=== PATIENT | female | born 1965 | race Caucasian/White ===

== ENCOUNTER → 2019-09-28 12:25 | Outpatient (CLI) | payer OTHER, SELFPAY ==
--- NOTE | 2019-09-28 | DI.MG.S_ITS ---
BILATERAL DIGITAL SCREENING MAMMOGRAM 3D/2D WITH CAD: 09/28/2019 CLINICAL: Routine screening. Comparison is made to exams dated: 03/21/2016 mammogram, 07/27/2009 mammogram, 01/17/2008 mammogram, 10/10/2016 mammogram, and 03/29/2016 mammogram - [facility]. There are scattered fibroglandular elements in both breasts. Current study was also evaluated with a Computer Aided Detection (CAD) system. There is an oval focal asymmetry of the superior lateral right breast at middle to posterior depth which is stable in appearance on multiple prior exams dating back to 07/27/09, consistent with benignity and likely representing dense fibroglanduar tissue or a hamartoma. There are linear fine calcifications in the medial left breast at posterior depth. No other significant masses, calcifications, or other findings are seen in either breast. IMPRESSION: INCOMPLETE: NEEDS ADDITIONAL IMAGING EVALUATION The linear fine calcifications in the medial left breast at posterior depth are indeterminate. Magnification views as well as additional views with possible ultrasound are recommended. This exam was interpreted at Station ID: [id number]. NOTE: For mammograms, a report in lay terms will be sent to the patient. Approximately 15% of breast malignancies will not be visualized mammographically. In the management of a palpable breast mass, a negative mammogram must not discourage biopsy of a clinically suspicious lesion. Electronically Signed By: Harsh Adame M.D. ecl/:09/28/2019 17:50:10 letter sent: Additional Imaging Needed ACR BI-RADS Category 0: Incomplete 3340F
--- NOTE | 2019-09-28 | DI.RAD.S_ITS ---
PROCEDURE: XR HIP W PEL IF DONE LT MIN 4V INDICATIONS: BILATERAL HIP PAIN TECHNIQUE: AP pelvis with lateral view(s) of the bilateral hip(s). COMPARISON: None. FINDINGS: Bones: No fractures or dislocations. Pelvic ring appears intact. No suspicious bony lesions. Soft tissues: The visualized bowel gas pattern is normal. No suspicious soft tissue calcifications. IMPRESSION: There is a minimal degree of joint degenerative osteoarthritic thinning, and no trauma found. Dictated by: Navin Blake M.D. on 09/28/2019 at 13:44 Approved by: Navin Blake M.D. on 09/28/2019 at 13:45
--- NOTE | 2019-09-28 | DI.RAD.S_ITS ---
PROCEDURE: XR LUMBAR SPINE 2-3V INDICATIONS: BACK PAIN TECHNIQUE: 3 views of the lumbar spine were acquired. COMPARISON: None. FINDINGS: Bones: 5 [id number] vertebrae are present. There is normal bony alignment. No vertebral body compression fractures. No suspicious bony lesions. Soft tissues: Overlying bowel gas pattern is normal. No suspicious soft tissue calcifications. IMPRESSION: Normal for age, source of current back pain symptoms is not seen. Dictated by: Navin Blake M.D. on 09/28/2019 at 13:44 Approved by: Navin Blake M.D. on 09/28/2019 at 13:44
== END ==
PROVIDERS: Visit Provider Nurse Practitioner Family
DX: Z12.31 Encounter for screening mammogram for malignant neoplasm of breast (principal); M25.551 Pain in right hip; M25.552 Pain in left hip; M54.5 Low back pain
CPT/HCPCS: 72100; 73522; 77063; 77067

== ENCOUNTER → 2019-10-14 12:57 | Outpatient (CLI) | payer OTHER, SELFPAY ==
--- NOTE | 2019-10-14 | DI.MG.S_ITS ---
UNILATERAL LEFT DIGITAL DIAGNOSTIC MAMMOGRAM 3D/2D WITH ADDITIONAL VIEWS: 10/14/2019 CLINICAL: Additional evaluation requested from prior study. Comparison is made to exams dated: 09/28/2019 mammogram, 10/10/2016 mammogram, and 03/29/2016 mammogram - [facility]. There are scattered fibroglandular elements in left breast. There are new linear segmental fine pleomorphic calcifications in the left breast at 9 o'clock posterior depth. No other significant masses or calcifications are seen in the breast. IMPRESSION: HIGHLY SUGGESTIVE OF MALIGNANCY The new linear segmental fine pleomorphic calcifications in the left breast are highly suggestive of malignancy. A stereotactic biopsy is recommended. The findings were discussed with the patient at the conclusion of the study by Dr. Blake. This exam was interpreted at Station ID: [id number]. NOTE: For mammograms, a report in lay terms will be sent to the patient. Approximately 15% of breast malignancies will not be visualized mammographically. In the management of a palpable breast mass, a negative mammogram must not discourage biopsy of a clinically suspicious lesion. Electronically Signed By: Raul meza/:10/14/2019 14:13:12 letter sent: Biopsy Required ACR BI-RADS Category 5: Highly suggestive of malignancy 3345F
== END ==
PROVIDERS: Referring Provider Nurse Practitioner Family; Visit Provider Nurse Practitioner Family
DX: R92.8 Other abnormal and inconclusive findings on diagnostic imaging of breast (principal); R92.1 Mammographic calcification found on diagnostic imaging of breast
CPT/HCPCS: 77065; G0279

== ENCOUNTER → 2020-10-25 10:59 | Outpatient (CLI) | payer OTHER, SELFPAY ==
--- NOTE | 2020-10-25 11:01 | DI.MRI.S_ITS ---
BREAST MRI OF BOTH BREASTS- POST LUMPECTOMY: 10/25/2020 CLINICAL: Follow up DCIS raditation. Comparison is made to exams dated: 05/19/2020 breast MRI - [facility], 03/07/2020 localization - [facility], 10/22/2019 stereotactic biopsy - [facility], and 09/28/2019 mammogram - [facility]. Interpretation of this MRI was correlated with available mammograms, ultrasounds, previous MRI scans, and clinical information. Gadolinium contrast was injected. Axial T1, T2, and pre and post contrast T1 images were obtained. Bilateral background breast enhancement is mild. FINDINGS: Image quality: Excellent. There is mild background parenchymal enhancement. Right breast: The right breast demonstrates no abnormal focus, mass, or abnormal enhancement. No axillary or internal mammary chain adenopathy. Left breast: There is a thin wall, peripherally enhancing lumpectomy cavity with a significantly smaller seroma now measuring 0.8 x 0.6 x 0.6 cm compared to 3.2 x 1.6 x 5.2 cm. Areas of signal loss or likely surgical clips. Postoperative focal thickening/scar extends to the underlying pectoralis muscle and the skin medially, however there is no significant enhancement on subtraction images and no areas of focal nodular enhancement to suggest recurrence of neoplasm. No axillary or internal mammary chain adenopathy. IMPRESSION: KNOWN BIOPSY PROVEN MALIGNANCY 1. Postoperative changes of lumpectomy in the left breast 9-10 o'clock position. The seroma is significantly smaller compared to the prior study. 2. No suspicious focal nodular enhancement in the left breast or chest wall to suggest residual disease or recurrence of disease status post lumpectomy. 3. No axillary or internal mammary gland adenopathy. This exam was interpreted at Station ID: [id number]. Electronically Signed By: Kendrick Lofton acr/:10/25/2020 12:56:08 copy to: HARSHAD GALLEGOS copy to: Yumi Schaeffer ACR BI-RADS Category 6: Known biopsy proven malignancy 3346F
== END ==
PROVIDERS: PCP Internal Medicine; Referring Provider Surgery; Visit Provider Surgery
DX: D05.12 Intraductal carcinoma in situ of left breast (principal)
CPT/HCPCS: 77049

== ENCOUNTER → 2021-05-12 13:55 | Outpatient (CLI) | payer OTHER, SELFPAY ==
--- NOTE | 2021-05-12 13:57 | DI.MG.S_ITS ---
BILATERAL DIGITAL SCREENING MAMMOGRAM 3D/2D WITH CAD: 05/12/2021 CLINICAL: Routine screening. Personal history of left breast cancer. Family history of breast cancer. Comparison is made to exams dated: 10/25/2020 breast MRI, 09/28/2019 mammogram, and 10/14/2019 mammogram - [facility]. There are scattered fibroglandular elements in both breasts. Current study was also evaluated with a Computer Aided Detection (CAD) system. There are benign post operative findings in the left breast. No significant masses, calcifications, or other findings are seen in either breast. There has been no significant interval change. IMPRESSION: BENIGN There is no mammographic evidence of malignancy. A 1 year screening mammogram is recommended. This exam was interpreted at Station ID: [id number]. NOTE: For mammograms, a report in lay terms will be sent to the patient. Approximately 15% of breast malignancies will not be visualized mammographically. In the management of a palpable breast mass, a negative mammogram must not discourage biopsy of a clinically suspicious lesion. Electronically Signed By: Kianna medellin/arias:05/12/2021 15:20:23 copy to: HARSHAD GALLEGOS copy to: Yumi Schaeffer letter sent: Normal Exam ACR BI-RADS Category 2: Benign Finding(s) 3342F
== END ==
PROVIDERS: PCP Internal Medicine; Referring Provider Internal Medicine; Visit Provider Internal Medicine
DX: Z12.31 Encounter for screening mammogram for malignant neoplasm of breast (principal); Z85.3 Personal history of malignant neoplasm of breast; Z80.3 Family history of malignant neoplasm of breast
CPT/HCPCS: 77063; 77067

== ENCOUNTER 2021-08-20 17:31 | Emergency (ER) | payer OTHER, SELFPAY ==
[2021-08-20 17:51] VITALS: BP 163/77; PULSE 83; RESP 16; TEMP 37; O2SAT 99; BMI 24.3
--- NOTE | 2021-08-20 18:00 | DI.RAD.S_ITS ---
PROCEDURE: XR FINGER LT MIN 2V INDICATIONS: injury TECHNIQUE: AP hand, 2 views of the left 2nd finger(s) acquired. COMPARISON: None. FINDINGS: Bones: No fractures or dislocations. No suspicious bony lesions. Soft tissues: No suspicious soft tissue calcifications. Soft tissue irregularity consistent with laceration. IMPRESSION: No fracture or radiopaque foreign body. Dictated by: Bk Harrison M.D. on 08/20/2021 at 18:22 Approved by: Bk Harrison M.D. on 08/20/2021 at 18:23
--- NOTE | 2021-08-20 18:37 | ED.UPPEXIN ---
HPI - Extremity Injury (Upper) <THIEN Woody - Last Filed: 08/20/21 20:32> General Chief Complaint: Extremity Injury, Upper Stated Complaint: Cut left hand and finger chopping veggies Time Seen by Provider: 08/20/21 18:35 Source: patient Mode of arrival: Ambulatory History of Present Illness HPI narrative: 56-year-old female presents to the emergency department today for a the left index finger laceration through the nail while cutting vegetables for dinner tonight. Patient reports she was watching a movie while slicing vegetables and she accidentally cut through her fingernail without realizing it. Bleeding was controlled with a pressure dressing, finger tip with not amputated, patient left index finger nail is involved and fully lacerated on the medial 1/3rd aspect of the nail. Patient's last tetanus was within the last year. Patient denies any anticoagulant, she does have full range of motion to her finger passive and active. She denies any difficulty with flexion or extension. Related Data Home Medications Medication Instructions Recorded Confirmed ibuprofen 200 mg tablet (Advil) 400 mg PO PRN #0 04/18/12 cetirizine 10 mg tablet 10 mg PO QDAYP PRN #0 12/05/16 Allergies Allergy/AdvReac Type Severity Reaction Status Date / Time ciprofloxacin [From CIPRO] Allergy Unknown rash Unverified 10/28/20 19:03 latex [LATEX] Allergy Unknown blisters Unverified 10/28/20 19:03 Sulfa (Sulfonamide Allergy Unknown RASH Unverified 10/28/20 19:03 Antibiotics) [SULFA (SULFONAMIDE ANTIBIOTICS)] Review of Systems <THIEN Woody - Last Filed: 08/20/21 20:32> Review of Systems Narrative: General: denies fever, chills Head/Neck: denies headache, neck pain Eyes: denies visual changes, eye pain Cardio: denies chest pain, palpitations Respiratory: denies shortness of breath, cough MSK: denies joint pain, muscle weakness, Skin: denies rash, itching, endorses left index finger laceration any on the medial tends Neuro: denies numbness, tingling Patient History <THIEN Woody - Last Filed: 08/20/21 20:32> Medical History Finger laceration Surgical History History of third molar tooth extraction Status post laparoscopy (04/18/12) Social History Smoking Status: Unknown if ever smoked Smoking Status: Unknown if ever smoked Substance Use Type: does not use Exam <THIEN Woody - Last Filed: 08/20/21 20:32> Narrative Exam Narrative: Independently reviewed vitals signs and nursing notes. General: Awake, alert, nontoxic, no cardiorespiratory distress Head/Neck: Atraumatic, neck full range of motion Eyes: EOMI, conjunctiva normal Nose: nares patent, no rhinorrhea Mouth/Throat: moist mucus membranes Cardio: Regular rate, cap refill less than 2 seconds, warm extremities Respiratory: respirations unlabored without wheezing, stridor, or rales. No retractions. MSK: Moves all extremities, neurovascularly intact, left index finger with laceration through the nail bed approximately 1/3 of the nail at the distal medial aspect. Bleeding is controlled, wound was thoroughly irrigated with saline and chlorhexidine solution. Skin: Normal capillary refill, no rash Neuro: Normal speech and cognition, normal gait Initial Vital Signs Initial Vital Signs: Vital Signs Temperature 98.6 F 08/20/21 17:51 Pulse Rate 83 08/20/21 17:51 Respiratory Rate 16 08/20/21 17:51 Blood Pressure 163/77 H 08/20/21 17:51 Pulse Oximetry 99 08/20/21 17:51 Procedures <THIEN Woody - Last Filed: 08/20/21 20:32> Laceration Repair Laceration 1: Size (cm): 1 Description: linear and clean Depth: simple, single layer Local Anesthetic: lidocaine 1% and with bicarb Amount of anesthesia used (mL): 2 Pre-repair: wound explored, irrigated extensively and deep structures intact Skin layer closed with: nylon Size (cm): 5-0 Number of sutures: 3 Technique: simple, interrupted Subcutaneous layer closed with: chromic gut Size: 5-0 Number of sutures: 3 Technique: simple, interrupted Course <THIEN Woody - Last Filed: 08/20/21 20:32> Orders Ordered: Discontinued Medications Hydrocodone Bitart/Acetaminophen (Hydrocodone/Acet 5/325 Tablet) 1 tab PO NOW ONE Stop: 08/20/21 20:10 Last Admin: 08/20/21 20:31 Dose: 1 tab Documented by: MYCHAL Lidocaine/Sodium Bicarbonate (Lido 1%/Sod Bicarb 8.4% (10ml) 10 Ml Syringe) 10 ml INJ NOW ONE Stop: 08/20/21 18:37 Last Admin: 08/20/21 20:32 Dose: 10 ml Documented by: MYCHAL Vital Signs Vital signs: Vital Signs - 8 hr 08/20/21 17:51 Temperature 98.6 F Pulse Rate 83 Respiratory Rate 16 Blood Pressure 163/77 H Pulse Oximetry 99 [facility] - Extremity Injury (Upper) <THIEN Woody - Last Filed: 08/20/21 20:32> Imaging Data Extremity x-ray #1: Radiologist's Impression: PROCEDURE:? XR FINGER LT MIN 2V ? INDICATIONS:? injury ? TECHNIQUE:? AP hand, 2 views of the left 2nd finger(s) acquired.? ? COMPARISON:? None. ? FINDINGS:? ? Bones:? No fractures or dislocations.? No suspicious bony lesions.? ? Soft tissues:? No suspicious soft tissue calcifications.? Soft tissue irregularity consistent with laceration. ? IMPRESSION:? No fracture or radiopaque foreign body. ? ? Dictated by: Bk Harrison M.D. on 08/20/2021 at 18:22 ? ? Approved by: Bk Harrison M.D. on 08/20/2021 at 18:23 ? [facility] Narrative Medical decision making narrative: 56-year-old female presents to the emergency department for laceration to her left index finger through the nail not involving the bone. Bleeding was controlled with pressure lack repair was completed without difficulty. Chromic gut sutures were used to suture up the nail, nylon sutures were used lateral to the nail suture the skin. X-ray did not show foreign body, or tuft fracture. Patient's finger was dressed with a tube gauze dressing, bleeding was controlled with the Surgicel, CMS intact distally. Patient tolerated procedure well, he will return to her PCP in 10-14 days for suture removal. Patient is appropriate and amenable to discharge home. Vital signs are stable on repeat examination is unremarkable. Patient has been informed of results. Patient has been given strict return to ER precautions for any new or worsening symptoms. Patient understands to follow up closely with outpatient providers as instructed. Patient understands plan and agrees to discharge home. All questions and concerns answered at this time. Discharge Plan Departure Patient Disposition: Home Clinical Impression: Finger laceration Qualifiers: Encounter type: initial encounter Finger: index finger Damage to nail status: with damage Foreign body presence: without foreign body Laterality: left Qualified Code(s): S61.311A - Laceration without foreign body of left index finger with damage to nail, initial encounter Instructions: DI for Laceration Repair -- Complex, DI for Laceration Repair -- Finger Activity Restrictions/Additional Instructions: *You have been diagnosed with a finger laceration of your left finger. Because it went through the nail, and it is fairly deep, I would like you to take the antibiotic if you are okay with that and the tube rather wait to see if he has any signs of infection. I called in pain medication as well to the [facility] here in [facility]. Please have your black sutures removed in 10-14 days. Try to keep this covered at all times mostly for protection. There was fracture under x-ray today which is good news. Please call [facility] and schedule an appointment for follow-up and suture removal. You are always welcome back here if you have any worsening of your symptoms, bleeding, or any other concerning problems. Was a pleasure to meet you, I wish you well. *What to do: *Please continue to take your regular medications as directed. [x ] New medication prescriptions sent to your pharmacy: [Amy Yarbrough ] [ ] New medication written as a paper prescription [ ] No new medications given *Please follow up with your primary care provider in 2-3 days, call for an appointment. Let them know you were seen in the Emergency Department and that we ask that you be seen in follow up. We will electronically transmit a record of today's note if your PCP is in our system *If you do not have a primary care provider please contact the [facility] Resource line at [phone]. They will ask some questions about your medical history and help get you set up with a doctor in the community. *Return to Emergency Department if you should have any new, worsening or concerning symptoms, such as [fever greater than 101F, chills, worsening pain, persistent vomiting or other bothersome symptoms] Prescriptions: No Action ibuprofen [Advil] 200 MG tablet 400 mg PO PRN Qty: 0 0RF cetirizine 10 MG tablet 10 mg PO QDAYP PRNQty: 0 0RF Referrals: Vika Rodriguez ARNP [Primary Care Provider] - 10-14 days
--- NOTE | 2021-08-20 20:19 | PC.NURSE ---
post suture dsg placed, surgiseal, then nonadherent dsg covered by roll gauze.
[2021-08-20] MEDS: HYDROCODONE/ACET 5/325 TABLET 1 TAB PO (20:31)
[2021-08-20] MEDS: LIDO 1%/SOD BICARB 8.4% (10ML) 10 ML SYRINGE INJ (20:32)
== END 2021-08-20 20:36 | disposition home or self-care (01) ==
PROVIDERS: Emergency Provider Nurse Practitioner Critical Care Medicine; PCP Internal Medicine
DX: S61.311A Laceration without foreign body of left index finger with damage to nail, initial encounter (principal); W26.9XXA Contact with unspecified sharp object(s), initial encounter
CPT/HCPCS: 12001; 73140; 99283; 99284

== ENCOUNTER → 2021-11-13 11:58 | Outpatient (CLI) | payer OTHER, SELFPAY ==
--- NOTE | 2021-11-13 12:03 | DI.MRI.S_ITS ---
BREAST MRI OF BOTH BREASTS- POST LUMPECTOMY: 11/13/2021 CLINICAL: Intraductal carcinoma in situ of left breast. TECHNIQUE: The patient was placed prone in a dedicated breast imaging coil. Precontrast axial STIR and 3D FLASH without fat saturation sequences were obtained. Both before and after bolus injection of contrast, sequential 1-minute axial 3D FLASH with fat saturation sequences for 3 time points, with subtraction images and maximum intensity projections (MIP's) generated. Delayed sagittal FLASH images with fat saturation were also obtained. Computer-aided detection, including computer algorithm analysis of MRI image data for lesion detection and characterization, pharmacokinetic analysis, with further physician review for interpretation, was performed. COMPARISON: [facility], MG, MM SCREENING MAMMO BI, 05/12/2021, 14:27. [facility], MR, MR BREAST BILATERAL WITH CAD, 05/19/2020, 13:09. [facility], MR, MR BREAST BI WO/W CON, 10/25/2020, 11:35. Image quality: Excellent. There is mild background parenchymal enhancement. There is scattered fibroglandular tissue in the bilateral breasts. Right breast: No mass, non-mass enhancement, architectural distortion, skin abnormalities, or nipple abnormalities identified. No axillary or internal mammary chain adenopathy. Left breast: Again noted, postsurgical changes from partial mastectomy of the 9-10 o'clock region of the posterior left breast. There is surgical changes extending to the underlying pectoralis muscle. Overall appearance appears less conspicuous without abnormal enhancement. Findings are compatible with progressive healing and fibrosis from previous surgery. Susceptibility artifact within the surgical site is again noted. No abnormal enhancement noted within the surgical bed. Overall, the area of scarring and previous seroma continues to decrease in size and prominence now measuring approximately 2.6 cm in AP dimension, 1.7 cm in craniocaudal dimension, and approximately 0.8 cm in transverse dimension. The previously described seroma measuring 0.8 x 0.6 x 0.6 cm is no longer visualized definitively for measuring. No definite focal fluid collection is identified on today's study. No new mass identified. No areas of suspicious non mass enhancement. No new skin or nipple abnormalities. Expected postsurgical changes/scarring of the skin adjacent to the surgical site. No axillary or internal mammary chain adenopathy. Miscellaneous: Redemonstration of stable thin walled nonenhancing hepatic cysts. Remainder of the visualized upper abdomen and chest structures are unremarkable. IMPRESSION: BENIGN 1. Postoperative changes of the medial left breast compatible with prior partial mastectomy with continued decrease in size of previously described seroma/hematoma. No definite residual fluid collection identified. Continued decrease in size and prominence of surgical changes/scarring. No suspicious enhancement/non-mass enhancement identified. No new mass lesions. 2. Right breast without MRI evidence for malignancy. Recommend continued clinical surveillance and annual screening mammography (due approximately May 2022). Consider continued annual surveillance breast MRI. COMMENT: The imaging literature indicates that a negative contrast breast MRI examination has a high sensitivity and a moderate specificity for detecting and excluding invasive carcinomas to a detection threshold of 3-5 mm; nonetheless, appropriate clinical and mammographic follow-up are recommended. MRI is not sensitive for detecting DCIS (ductal carcinoma in situ) and may not detect large invasive neoplasms that show only minimal enhancement such as mucinous carcinoma. If there are suspicious calcifications or clinically worrisome palpable masses, then biopsy should still be considered. Invasive neoplasms can be hidden by co-existent and benign enhancement caused by mastitis, hormone therapy effects, radiation therapy, , and recent biopsy or surgery. False positive examinations can occur in a number of circumstances, including breasts that have recently been subject to invasive procedures and those that contain atypical ductal hyperplasia, hormonally stimulated glandular tissue, fat necrosis, or radial scars. Return to annual mammogram screening schedule is recommended. Future imaging is recommended as follows: 05/13/2022 screening mammogram. This exam was interpreted at Station ID: [id number]. Electronically Signed By: Alexis Lacy M.D. aty/:11/14/2021 14:24:28 copy to: HARSHAD GALLEGOS copy to: Yumi Schaeffer ACR BI-RADS Category 2: Benign Finding(s) 3342F
== END ==
PROVIDERS: PCP Internal Medicine; Referring Provider Surgery; Visit Provider Surgery
DX: D05.12 Intraductal carcinoma in situ of left breast
CPT/HCPCS: 77049; A9579

== ENCOUNTER → 2022-02-07 09:46 | Outpatient (CLI) | payer OTHER, SELFPAY ==
[2022-02-07 12:34] LABS: COVID19 -Nasal RAPID Negative (Negative)
== END ==
PROVIDERS: PCP Internal Medicine; Visit Provider Family Medicine Sleep Medicine
DX: Z20.822 Contact with and (suspected) exposure to COVID-19 (principal)
CPT/HCPCS: 87635; C9803

== ENCOUNTER 2022-02-09 13:40 | Day surgery (SDC) | payer OTHER, SELFPAY ==
--- NOTE | 2022-02-09 12:32 | PM.PREOP ---
Pre-operative Note COVID-19 COVID-19 status: Negative Result date/Date tested (Pos, Neg/Pending): 02/07/22 Interval Note History & Physical reviewed/Exam performed by Physician: Yes Changes to H&P: No ASA Class (for procedural sedation): II
--- NOTE | 2022-02-09 12:32 | PM.OP.COLON ---
Operative Date/Time/Diagnoses Date of procedure: 02/09/22 Procedure Notes SCOAP/Timeout: 3:47 p.m. Procedure in detail: ENDOSCOPIST: Ruby Issa MD Sedation RN: Angelic Villarreal RN Sedation start time: 3:48 p.m. Sedation end time: 4:05 p.m. PROCEDURE: Colonoscopy INDICATIONS: 1. Screening for colon cancer MEDICATION: Levsin 0.125 mg sublingual, incremental doses of Versed and fentanyl until appropriate level sedation achieved. ASA CLASS: 2 CECAL WITHDRAWAL TIME: 12 minutes COMPLICATIONS: None. EXTENT OF PROCEDURE: Cecum. QUALITY OF PREP: Good with portions of liquid stool. PROCEDURE: Prior to insertion of the colonoscope, a digital rectal examination was accomplished with circumferential palpation of the distal rectal mucosa without significant findings being noted. The high-definition pediatric colonoscope was passed into the rectum in the usual fashion and advanced over to the cecum without difficulty. The ileocecal valve, appendiceal stoma, and medial wall all could be inspected and no abnormalities were seen. ASCENDING COLON: As the colonoscope was withdrawn, care was taken to expose and inspect the haustral folds and no abnormalities were seen. HEPATIC FLEXURE: Normal, no polyps, diverticula or other abnormalities. TRANSVERSE COLON: Normal, no polyps, diverticula or other abnormalities. DESCENDING COLON: Normal, no polyps, diverticula or other abnormalities. SIGMOID COLON: Moderate diverticulosis, otherwise, normal, no polyps, or other abnormalities. RECTUM: Normal. J maneuver was produced. There was no significant perianal disease. The J maneuver was broken. The remainder of the rectum was inspected and there was no external hemorrhoid disease. The scope was withdrawn. IMPRESSION: 1. Normal colonoscopy 2. Sigmoid diverticulosis PLAN: 1. Repeat colonoscopy in 10 years. The possibility of a missed lesion including a malignancy has been discussed with the patient previously. Potential alarm symptoms have been discussed and should be reported immediately.
[2022-02-09 13:58] VITALS: BP 157/99; PULSE 106; RESP 16; TEMP 37.3; O2SAT 100
[2022-02-09 14:04] VITALS: BMI 26.0
[2022-02-09] MEDS: HYOSCYAMINE 0.125 MG TABLET PO (14:16)
[2022-02-09] MEDS: LACTATED RINGERS 1,000 ML 200 ML IV (14:16)
[2022-02-09] MEDS: MIDAZOLAM 5 MG/5 ML VIAL 6 MG IV (15:48)
[2022-02-09] MEDS: fentaNYL 250 MCG/5 ML INJ 150 MCG IV (15:48)
[2022-02-09 16:19] VITALS: BP 120/89; PULSE 94; RESP 14; TEMP 36.4; O2SAT 98
[2022-02-09 16:24] VITALS: BP 125/86; PULSE 78; PULSE 93; RESP 15; RESP 18; O2SAT 98; O2SAT 99
[2022-02-09 16:29] VITALS: BP 121/78; PULSE 77; RESP 16; O2SAT 98
[2022-02-09 16:34] VITALS: BP 121/78; PULSE 81; RESP 16; O2SAT 99
[2022-02-09 16:41] VITALS: BP 129/94; PULSE 92; RESP 16; O2SAT 100
== END 2022-02-09 17:02 | disposition home or self-care (01) ==
PROVIDERS: PCP Family Medicine; Referring Provider Student in an Organized Health Care Education/Training Program; Visit Provider Student in an Organized Health Care Education/Training Program
PROC: 0DJD8ZZ Inspection of Lower Intestinal Tract, Via Natural or Artificial Opening Endoscopic (ICD-10-PCS; CPT 45378; principal; 2022-02-09 15:15)
DX: Z12.11 Encounter for screening for malignant neoplasm of colon (principal); Z86.010 Personal history of colon polyps; K57.30 Diverticulosis of large intestine without perforation or abscess without bleeding
CPT/HCPCS: 45378; J2250; J3010

== ENCOUNTER → 2022-06-16 12:45 | Outpatient (CLI) | payer OTHER, SELFPAY ==
--- NOTE | 2022-06-16 12:47 | DI.MG.S_ITS ---
BILATERAL DIGITAL SCREENING MAMMOGRAM 3D/2D WITH CAD: 06/16/2022 CLINICAL: Routine screening. Personal history of left breast cancer. Family history of breast cancer. Comparison is made to exams dated: 11/13/2021 breast MRI, 05/12/2021 mammogram, 10/25/2020 breast MRI - [facility], and 05/19/2020 breast MRI - [facility]. There are scattered areas of fibroglandular density in both breasts (category b / 25%-50% glandular tissue). Current study was also evaluated with a Computer Aided Detection (CAD) system. There are benign post operative findings in the left breast. There is a mole marker on the right breast. No significant masses, calcifications, or other findings are seen in either breast. There has been no significant interval change. IMPRESSION: BENIGN There is no mammographic evidence of malignancy. A 1 year screening mammogram is recommended. This exam was interpreted at Station ID: [id number]. NOTE: For mammograms, a report in lay terms will be sent to the patient. Approximately 15% of breast malignancies will not be visualized mammographically. In the management of a palpable breast mass, a negative mammogram must not discourage biopsy of a clinically suspicious lesion. Electronically Signed By: Kendrick Lofton M.D. acr/penrad:06/18/2022 08:47:33 copy to: HARSHAD GALLEGOS copy to: Yumi Schaeffer letter sent: Normal Exam ACR BI-RADS Category 2: Benign Finding(s) [id number]
== END ==
PROVIDERS: PCP Family Medicine; Referring Provider Family Medicine; Visit Provider Family Medicine
DX: Z12.31 Encounter for screening mammogram for malignant neoplasm of breast (principal); Z85.3 Personal history of malignant neoplasm of breast; Z80.3 Family history of malignant neoplasm of breast
CPT/HCPCS: 77063; 77067

== ENCOUNTER → 2022-12-13 11:44 | Outpatient (CLI) | payer OTHER, SELFPAY ==
--- NOTE | 2022-12-13 | DI.MRI.S_ITS ---
BREAST MRI OF BOTH BREASTS: 12/13/2022 CLINICAL: Left breast cancer. PROCEDURE: MR BREAST BI WO/W CON INDICATIONS: INTRADUCTAL CARCINOMA LEFT BREAST TECHNIQUE: The patient was placed prone in a dedicated breast imaging coil. Precontrast axial STIR and 3D FLASH without fat saturation sequences were obtained. Both before and after bolus injection of contrast, sequential 1-minute axial 3D FLASH with fat saturation sequences for 3 time points, with subtraction images and maximum intensity projections (MIP's) generated. Delayed sagittal FLASH images with fat saturation were also obtained. Computer-aided detection, including computer algorithm analysis of MRI image data for lesion detection and characterization, pharmacokinetic analysis, with further physician review for interpretation, was performed. COMPARISON: Merged With [facility], , MR BREAST BI WO/W CON, 10/25/2020, 11:35. [facility], MM SCREENING MAMMO BI, 05/12/2021, 14:27. [facility], MM SCREENING MAMMO BI, 06/16/2022, 13:11. [facility], MR BREAST BI WO/W CON, 11/13/2021, 12:04. FINDINGS: Image quality: Excellent. There is mild background parenchymal enhancement. Right breast: No abnormal focus, mass, or abnormal enhancement. Normal-appearing lymph nodes are seen in the right axilla. Left breast: Postoperative changes of lumpectomy in the medial breast are seen. Previously described seroma has resolved. No abnormal enhancement. Linear scar extends from the operative site to the underlying pectoralis muscle and skin medially with no enhancement on subtraction images and no areas of focal nodular enhancement to suggest recurrence of neoplasm. No axillary or internal mammary chain adenopathy. IMPRESSION: BENIGN 1. Postoperative changes of lumpectomy in the left breast 9 o'clock to 10 o'clock position. 2. No evidence of residual or recurrence disease status post lumpectomy. 3. No axillary or internal mammary gland adenopathy. COMMENT: The imaging literature indicates that a negative contrast breast MRI examination has a high sensitivity and a moderate specificity for detecting and excluding invasive carcinomas to a detection threshold of 3-5 mm; nonetheless, appropriate clinical and mammographic follow-up are recommended. MRI is not sensitive for detecting DCIS (ductal carcinoma in situ) and may not detect large invasive neoplasms that show only minimal enhancement such as mucinous carcinoma. If there are suspicious calcifications or clinically worrisome palpable masses, then biopsy should still be considered. Invasive neoplasms can be hidden by co-existent and benign enhancement caused by mastitis, hormone therapy effects, radiation therapy, , and recent biopsy or surgery. False positive examinations can occur in a number of circumstances, including breasts that have recently been subject to invasive procedures and those that contain atypical ductal hyperplasia, hormonally stimulated glandular tissue, fat necrosis, or radial scars. This exam was interpreted at Station ID: [id number]. Electronically Signed By: Kendrick Lofton M.D. acr/:12/14/2022 10:26:12 copy to: Carlota Lainez letter sent: Normal Exam ACR BI-RADS Category 2: Benign Finding(s) [id number]
== END ==
PROVIDERS: PCP Family Medicine; Referring Provider Internal Medicine; Visit Provider Internal Medicine
DX: Z12.39 Encounter for other screening for malignant neoplasm of breast (principal); C50.912 Malignant neoplasm of unspecified site of left female breast
CPT/HCPCS: 77049; A9579

== ENCOUNTER → 2023-04-16 15:11 | Outpatient (CLI) | payer OTHER, SELFPAY ==
--- NOTE | 2023-04-16 15:12 | DI.RAD.S_ITS ---
PROCEDURE: XR HAND RT MIN 3V INDICATIONS: injury of right hand, INITIAL ENCOUNTER TECHNIQUE: 3 views of the hand(s) acquired. COMPARISON: None. FINDINGS: Bones: No fractures or dislocations. Carpal bones are normally aligned. No suspicious bony lesions. Soft tissues: No suspicious soft tissue calcifications. IMPRESSION: No acute right hand fracture or dislocation. Dictated by: Mateus Hawkins M.D. on 04/16/2023 at 21:50 Approved by: Mateus Hawkins M.D. on 04/16/2023 at 21:51
== END ==
PROVIDERS: PCP Family Medicine; Referring Provider Registered Nurse; Visit Provider Registered Nurse
DX: S69.91XA Unspecified injury of right wrist, hand and finger(s), initial encounter (principal); W19.XXXA Unspecified fall, initial encounter
CPT/HCPCS: 73130

== ENCOUNTER → 2023-09-23 17:11 | Outpatient (CLI) | payer OTHER, SELFPAY ==
--- NOTE | 2023-09-23 17:12 | DI.MG.S_ITS ---
BILATERAL DIGITAL SCREENING MAMMOGRAM 3D/2D WITH CAD POST LUMPECTOMY: 09/23/2023 CLINICAL: Routine screening. Personal history of left breast cancer. Family history of breast cancer. Comparison is made to exams dated: 12/13/2022 breast MRI, 06/16/2022 mammogram, and 11/13/2021 breast MRI - [facility]. There are scattered areas of fibroglandular density in both breasts (category b / 25%-50% glandular tissue). Current study was also evaluated with a Computer Aided Detection (CAD) system. There are benign post operative findings in the left breast. There is a mole marker on the right breast. No significant masses, calcifications, or other findings are seen in either breast. There has been no significant interval change. IMPRESSION: BENIGN There is no mammographic evidence of malignancy. A 1 year screening mammogram is recommended. Future imaging is recommended as follows: 12/14/2023 screening mammogram. This exam was interpreted at Station ID: [id number]. NOTE: For mammograms, a report in lay terms will be sent to the patient. Approximately 15% of breast malignancies will not be visualized mammographically. In the management of a palpable breast mass, a negative mammogram must not discourage biopsy of a clinically suspicious lesion. Electronically Signed By: Alexis barnhart/arias:09/24/2023 08:42:03 copy to: Carlota Lainez letter sent: Normal Exam ACR BI-RADS Category 2: Benign Finding(s) 3342F
== END ==
PROVIDERS: PCP Family Medicine; Referring Provider Internal Medicine; Visit Provider Internal Medicine
DX: Z12.31 Encounter for screening mammogram for malignant neoplasm of breast (principal); Z85.3 Personal history of malignant neoplasm of breast; Z80.3 Family history of malignant neoplasm of breast; R92.323 Mammographic fibroglandular density, bilateral breasts
CPT/HCPCS: 77063; 77067

== ENCOUNTER → 2024-06-04 11:47 | Outpatient (CLI) | payer OTHER, SELFPAY ==
--- NOTE | 2024-06-04 11:48 | DI.MRI.S_ITS ---
BREAST MRI OF BOTH BREASTS- POST LUMPECTOMY: 06/04/2024 CLINICAL: History of left breast cancer status post lumpectomy. PROCEDURE: MR BREAST BI WO/W CON INDICATIONS: History or left breast cancer status post lumpectomy TECHNIQUE: The patient was placed prone in a dedicated breast imaging coil. Precontrast axial STIR and 3D FLASH without fat saturation sequences were obtained. Both before and after bolus injection of contrast, sequential 1-minute axial 3D FLASH with fat saturation sequences for 3 time points, with subtraction images and maximum intensity projections (MIP's) generated. Delayed sagittal FLASH images with fat saturation were also obtained. Computer-aided detection, including computer algorithm analysis of MRI image data for lesion detection and characterization, pharmacokinetic analysis, with further physician review for interpretation, was performed. COMPARISON: [facility], , MR BREAST BI WO/W CON, 12/13/2022, 11:58. FINDINGS: Image quality: Diagnostic. There is scattered amount of fibroglandular tissue. There is minimal and symmetric background parenchymal enhancement. Right breast: No suspicious enhancement or lymphadenopathy. Left breast: There is stable postsurgical changes from prior lumpectomy. No suspicious enhancement or lymphadenopathy. Miscellaneous: Stable T2 hyperintense hepatic structures most consistent with cysts. IMPRESSION: BENIGN Status post left breast lumpectomy. No MRI evidence of malignancy. Recommend routine annual screening. Future imaging is recommended as follows: 09/23/2024 screening mammogram. This exam was interpreted at Station ID: [id number]. Electronically Signed By: Irish Brown M.D., Ph.D. eb/:06/05/2024 11:18:51 copy to: Carlota Lainez letter sent: Normal Exam ACR BI-RADS Category 2: Benign
== END ==
PROVIDERS: PCP Family Medicine; Referring Provider Internal Medicine; Visit Provider Internal Medicine
DX: D05.12 Intraductal carcinoma in situ of left breast (principal)
CPT/HCPCS: 77049; A9579

== ENCOUNTER → 2024-11-06 16:15 | Outpatient (CLI) | payer OTHER, SELFPAY ==
--- NOTE | 2024-11-06 16:18 | DI.RAD.S_ITS ---
PROCEDURE: XR FINGER LT MIN 2V INDICATIONS: L FINGER PAIN TECHNIQUE: AP hand, 2 views of the 5th finger(s) acquired. COMPARISON: [facility], , XR FINGER LT MIN 2V, 08/20/2021, 17:55. FINDINGS: Bones: There is dorsal dislocation at the 5th PIP joint. Small adjacent curvilinear calcifications are present. Soft tissues: No suspicious soft tissue calcifications. IMPRESSION: Dorsal dislocation at the 5th PIP joint with appearance of avulsion fracture. Dictated by: Meena Reese M.D. on 11/06/2024 at 16:47 Approved by: Meena Reese M.D. on 11/06/2024 at 16:48
== END ==
PROVIDERS: PCP Family Medicine; Referring Provider Family Medicine; Visit Provider Family Medicine
DX: S63.287A Dislocation of proximal interphalangeal joint of left little finger, initial encounter (principal); M79.645 Pain in left finger(s)
CPT/HCPCS: 73140

== ENCOUNTER 2024-11-06 16:51 | Emergency (ER) | payer OTHER, SELFPAY ==
[2024-11-06 17:01] VITALS: BP 151/91; PULSE 88; RESP 18; TEMP 36.1; O2SAT 97; BMI 27.3
--- NOTE | 2024-11-06 17:53 | ED.UPPEXIN ---
HPI - Extremity Injury (Upper) <Yaneli Lopez PA-C - Last Filed: 11/06/24 20:03> General Chief Complaint: Extremity Injury, Upper Stated Complaint: sent by Dr Lane for dislocated finger Time Seen by Provider: 11/06/24 17:22 History of Present Illness HPI narrative: Ms. Garica is a very pleasant 59-year-old female who presents to the emergency department after being sent by her PCP Dr. Lane for dislocated left 5th finger. Patient reports she tripped over stool on Saturday causing her to land on her left pinky. States that the pinky has been swollen and painful since then and she has been unable to bend it at the PIP. Because the pain was not getting better, she went to her primary care doctor who obtained an x-ray revealing dorsal dislocation at the 5th PIP joint with the parents of avulsion fracture. She was sent here for fracture reduction. Reports that she still has sensation intact on the distal finger, and she is still able to move the finger at the MCP joint. She denies any other injuries from the fall, head trauma or LOC. She is not on blood thinners. Related Data Home Medications Medication Instructions Recorded Confirmed ibuprofen 200 mg tablet (Advil) 400 mg PO PRN ##0 04/18/12 02/09/22 cetirizine 10 mg tablet 10 mg PO QDAYP PRN Allergic 12/05/16 02/09/22 Symptoms ##0 Allergies Allergy/AdvReac Type Severity Reaction Status Date / Time ciprofloxacin [From CIPRO] Allergy Unknown rash Verified 02/09/22 14:02 latex [LATEX] Allergy Unknown blisters Verified 02/09/22 14:02 Sulfa (Sulfonamide Allergy Unknown RASH Verified 02/09/22 14:02 Antibiotics) [SULFA (SULFONAMIDE ANTIBIOTICS)] Review of Systems <Yaneli Lopez PA-C - Last Filed: 11/06/24 20:03> Review of Systems ROS Unobtainable: All systems reviewed & are unremarkable except as noted in HPI and below Patient History <Yaneli Lopez PA-C - Last Filed: 11/06/24 20:03> Medical History Finger laceration Surgical History Status post laparoscopy (04/18/12) History of third molar tooth extraction Social History household members: spouse Smoking Status: Former smoker alcohol intake: current Smoking Status: Former smoker Alcohol type: wine Exam <Yaneli Lopez PA-C - Last Filed: 11/06/24 20:03> Narrative Exam Narrative: GENERAL: 59 year old patient appears stated age. Well-developed patient, in no acute distress. CARDIOVASCULAR: Regular rate RESPIRATORY: ?Nonlabored respirations. ?Speaking in clear, full sentences. EXTREMITIES: Left fifth digit diffusely swollen with ecchymosis. She is unable to flex at the PIP or D IP. She is able to flex at the MCP. Tenderness to palpation of the PIP. She does still have sensation intact to light touch on the distal 5th finger and brisk capillary refill. No tenderness to palpation of remainder of left hand or wrist. BACK: No midline spinal tenderness. NEURO: AOx3. ?Clear speech. ?Moves all 4 extremities appropriately. SKIN: No rash or erythema of visible areas Initial Vital Signs Initial Vital Signs: Vital Signs Temperature 97.0 F L 11/06/24 17:01 Pulse Rate 88 11/06/24 17:01 Respiratory Rate 18 11/06/24 17:01 Blood Pressure 151/91 H 11/06/24 17:01 Pulse Oximetry 97 11/06/24 17:01 Oxygen Delivery Method Room Air 11/06/24 17:01 <Alexis Reyes MD - Last Filed: 11/07/24 06:07> Initial Vital Signs Initial Vital Signs: Vital Signs Temperature 97.0 F L 11/06/24 17:01 Pulse Rate 88 11/06/24 17:01 Respiratory Rate 18 11/06/24 17:01 Blood Pressure 151/91 H 11/06/24 17:01 Pulse Oximetry 97 11/06/24 17:01 Oxygen Delivery Method Room Air 11/06/24 17:01 Procedures <Yaneli Lopez PA-C - Last Filed: 11/06/24 20:03> Nerve Block Nerve Block 1: Time of procedure: 18:40 Local Anesthetic: lidocaine 1% Amount of anesthesia used (mL): 5 Side: left Nerve Blocks: digital (L fifth digit ) Procedure Successful: Yes Patient Tolerated Procedure: Well Complications: none Orthopedic Fracture Reduction Fracture #1: Time of procedure: 18:40 Side: left Fracture Reduction Location: finger Analgesia: nerve block Technique: direct manipulation Post Reduction X-rays Demonstrate: acceptable reduction Post-reduction neuro exam: intact (only pressure sensation due to nerve block ) Post-reduction vascular exam: intact Splint Applied: Yes Patient Tolerated Procedure: Well Course <Yaneli Lopez PA-C - Last Filed: 11/06/24 20:03> Orders Ordered: Discontinued Medications Lidocaine HCl (Lidocaine 1% 20 Ml) 6 ml SUBCUT NOW ONE Stop: 11/06/24 17:25 Last Admin: 11/06/24 18:15 Dose: 6 ml Documented By: ES Vital Signs Vital signs: Vital Signs - 8 hr 11/06/24 17:01 Temperature 97.0 F L Pulse Rate 88 Respiratory Rate 18 Blood Pressure 151/91 H Pulse Oximetry 97 Oxygen Delivery Method Room Air <Alexis Reyes MD - Last Filed: 11/07/24 06:07> Orders Ordered: Discontinued Medications Lidocaine HCl (Lidocaine 1% 20 Ml) 6 ml SUBCUT NOW ONE Stop: 11/06/24 17:25 Last Admin: 11/06/24 18:15 Dose: 6 ml Documented By: ES Vital Signs Vital signs: Vital Signs - 8 hr 11/06/24 17:01 Temperature 97.0 F L Pulse Rate 88 Respiratory Rate 18 Blood Pressure 151/91 H Pulse Oximetry 97 Oxygen Delivery Method Room Air MDM - Extremity Injury (Upper) <Yaneli Lopez PA-C - Last Filed: 11/06/24 20:03> Medical Records Attestation: I reviewed the patient's medical records. [facility] Narrative Medical decision making narrative: 59-year-old female who presents to the emergency department after being sent by her PCP Dr. Lane for dislocated left 5th finger x 6 days. Differential diagnosis includes but is not limited to finger fracture, finger dislocation, etc. On exam the patient is in no acute distress, nontoxic appearing. She has a swollen and bruised left finger with outpatient x-ray revealing dorsal dislocation of the 5th PIP joint with the parents of avulsion fracture. We will proceed with digital block and reduction. Pt tolerated digital block and reduction well. Postreduction films were obtained revealing improvement in dislocation, however some persistent subluxation of 5th PIP with adjacent avulsion fractures. Better alignment was able to be obtained after placing patient into aluminum finger splint. After reduction, pt continued to have brisk capillary refill on the distal phalanx, and she reported returning pressure sensation and some dull pain returning as nerve block wore off. Improved alignment clinically and improved ROM, however still limited flexion at PIP with significant swelling. Advised patient follow up with [facility] for further management & PT, continue using splint, rice therapy. Discussed strict ED return precautions including return for numbness/tingling, severe pain, color change, or any other concerns.. She verbalized understanding of all information is agreeable to plan. She is stable for discharge home. <Alexis Reyes MD - Last Filed: 11/07/24 06:07> [facility] Narrative Medical decision making narrative: 59-year-old female who presents to the emergency department after being sent by her PCP Dr. Lane for dislocated left 5th finger x 6 days. Differential diagnosis includes but is not limited to finger fracture, finger dislocation, etc. On exam the patient is in no acute distress, nontoxic appearing. She has a swollen and bruised left finger with outpatient x-ray revealing dorsal dislocation of the 5th PIP joint with the parents of avulsion fracture. We will proceed with digital block and reduction. Pt tolerated digital block and reduction well. Postreduction films were obtained revealing improvement in dislocation, however some persistent subluxation of 5th PIP with adjacent avulsion fractures. Better alignment was able to be obtained after placing patient into aluminum finger splint. After reduction, pt continued to have brisk capillary refill on the distal phalanx, and she reported returning pressure sensation and some dull pain returning as nerve block wore off. Improved alignment clinically and improved ROM, however still limited flexion at PIP with significant swelling. Advised patient follow up with [facility] for further management & PT, continue using splint, rice therapy. Discussed strict ED return precautions including return for numbness/tingling, severe pain, color change, or any other concerns.. She verbalized understanding of all information is agreeable to plan. She is stable for discharge home. I was available for consultation during this patient's time in the emergency department, I was at the bedside that help with reduction of the finger, appeared to have adequate reduction on post reduction films, patient placed in splint and instructed to follow up with win Reyes Discharge Plan Departure Patient Disposition: Home Clinical Impression: Closed dislocation of left little finger Finger fracture, left Qualifiers: Encounter type: initial encounter Finger: little finger Fracture type: closed Phalanx: proximal Fracture alignment: displaced Qualified Code(s): S62.617A - Displaced fracture of proximal phalanx of left little finger, initial encounter for closed fracture Instructions: DI for Finger Fracture Activity Restrictions/Additional Instructions: Dear Ms. Garcia, Thank you for coming to the emergency department. Today you were evaluated for left 5th finger fracture and dislocation. Your finger was numbed and we put it back into place however it is still not perfectly aligned so it is very important to continue wearing the splint and to follow up with Orthopedics for further evaluation and management of this broken finger. Please call to schedule an appointment with [facility] at [phone] Green or another orthopedic surgeon. Please return to the emergency department if you develop severe pain, color change or persistent numbness of the finger. Please take Ibuprofen (Motrin/Advil) or Acetaminophen (Tylenol) for pain. These are available over the counter. You may take Ibuprofen 600 mg every 8 hours with food for pain. You may also take Acetaminophen 650 mg every 4-6 hours for pain. Do not exceed 3000 mg of Tylenol a day as this can cause liver damage. Do not drink alcohol with either of these medications. Please follow up with your primary care doctor within the next 2-3 days for ER follow-up. (If you do not have a PCP you can call [phone]. ?to schedule an appointment with an [facility] Primary Care Provider) IF YOU DEVELOP ANY NEW OR WORSENING SYMPTOMS, RETURN TO THE ER! Please read the attached instructions, they highlight more specific treatments and interventions for you at home. Thank you for letting me participate in your care, Yaneli Lopez PA-C Prescriptions: No Action ibuprofen [Advil] 200 MG tablet 400 mg PO PRN Qty: 0 cetirizine 10 MG tablet 10 mg PO QDAYP PRN (Reason: Allergic Symptoms) Qty: 0 Rx Instructions: zyrte Referrals: Janusz Green MD [Physician] - (Left 5th digit PIP fracture dislocation seen in ED 11/06/24) Franki Lane MD [Primary Care Provider] - Stand Alone Forms: Patient Portal/API/Survey
[2024-11-06] MEDS: LIDOCAINE 1% 20 ML 6 ML SUBCUT (18:15)
--- NOTE | 2024-11-06 18:42 | DI.RAD.S_ITS ---
PROCEDURE: XR FINGER LT MIN 2V INDICATIONS: post reduction left 5th finger TECHNIQUE: AP hand, 2 views of the 5th finger(s) acquired. COMPARISON: [facility], [place], XR FINGER LT MIN 2V, 11/06/2024, 16:18. [facility], [place], XR FINGER LT MIN 2V, 08/20/2021, 17:55. FINDINGS AND IMPRESSION: Decreased, but persistent subluxation of the 5th PIP with adjacent avulsion fragments. Surrounding soft tissue swelling. Dictated by: Alcon Smith M.D. on 11/06/2024 at 19:22 Approved by: Alcon Smith M.D. on 11/06/2024 at 19:23
== END 2024-11-06 19:23 | disposition home or self-care (01) ==
PROVIDERS: Emergency Provider Physician Assistant; PCP Family Medicine
DX: S63.257A Unspecified dislocation of left little finger, initial encounter (principal); S62.617A Displaced fracture of proximal phalanx of left little finger, initial encounter for closed fracture; W01.0XXA Fall on same level from slipping, tripping and stumbling without subsequent striking against object, initial encounter; S63.287A Dislocation of proximal interphalangeal joint of left little finger, initial encounter; M79.645 Pain in left finger(s)
CPT/HCPCS: 26725; 64450; 73140; 99281; 99284